=== PATIENT | male | born 1995 | race American Indian/Alaskan Native ===

== ENCOUNTER 2021-12-26 16:04 | Emergency (ER) | payer OTHER, MEDICAID ==
[~2021-12-26] VITALS: Ht 165.1 cm; Wt 45.2 kg
[2021-12-26 17:18] VITALS: BP 109/72
[2021-12-26] MEDS ORDERED: cefTRIAXone SOD 1,000 MG VL IM ONE (17:30)
[2021-12-26] MEDS ORDERED: IBUP600T27 PO (17:57)
[2021-12-26] MEDS ORDERED: AZIT250T8 PO (17:57)
== END 2021-12-26 18:48 | disposition home or self-care (01) ==
LOC: ER 16:04
DX: M79.10 Myalgia, unspecified site (principal); J02.9 Acute pharyngitis, unspecified; Z79.1 Long term (current) use of non-steroidal anti-inflammatories (NSAID); Z79.2 Long term (current) use of antibiotics
CPT/HCPCS: 71046; 96372; 99283; J0696